=== PATIENT | male | born 1980 | race Caucasian/White ===

== ENCOUNTER 2020-05-19 08:32 | Day surgery (SDC) | payer OTHER, SELFPAY ==
[2020-05-15 12:52] VITALS: BMI 39.2
--- NOTE | 2020-05-18 08:33 | HO.ANESPROP2 ---
Documented by User: Paz Pool 05/18/20 08:35 HPI - Anesthesia Eval Consult details Narrative: 39yo M for Colonoscopy [facility] Past Medical History Medical History History of closed head injury Surgical History Surgical History History of excision of pilonidal cyst History of hand surgery Hx of colonoscopy Hx of inguinal hernia repair Social History Social History (Updated 05/19/20 @ 10:18 by Chela Tellez) Smoking Status: Current some day smoker Smoked in Last 30 Days: Yes Use of substances other than those prescribed or required for medical reasons: No Advance Directives: No Advance Directives Information Provided: No Advance Directives on File: No Recently lost weight without trying: No Meds Allergies Allergy/AdvReac Type Severity Reaction Status Date / Time phenytoin [Dilantin] Allergy Mild Rash Verified 05/19/20 08:45 Home Medications Medication Instructions Recorded Confirmed Type cholecalciferol (vitamin D3) 25 mcg PO DAILY 05/15/20 05/15/20 History [Vitamin D3] Exam Exam Date and Time: May 18, 2020 0833 Height,Weight and Vital Signs: Height 6 ft 1.5 in Weight 136.531 kg Assessment and Plan Assessment Anesthesia Assessment: Chart Reviewed Documented by User: Chela Tellez 05/19/20 10:19 [facility] Past Medical History Medical History History of closed head injury Family History Family history of problems with anesthesia: No Surgical History Surgical History History of excision of pilonidal cyst History of hand surgery Hx of colonoscopy Hx of inguinal hernia repair History of Problems with Anesthesia: No Social History Social History (Updated 05/19/20 @ 10:18 by Chela Tellez) Smoking Status: Current some day smoker Smoked in Last 30 Days: Yes Use of substances other than those prescribed or required for medical reasons: No Advance Directives: No Advance Directives Information Provided: No Advance Directives on File: No Recently lost weight without trying: No Meds Allergies Allergy/AdvReac Type Severity Reaction Status Date / Time phenytoin [Dilantin] Allergy Mild Rash Verified 05/19/20 08:45 Home Medications Medication Instructions Recorded Confirmed Type cholecalciferol (vitamin D3) 25 mcg PO DAILY 05/15/20 05/15/20 History [Vitamin D3] Exam Height,Weight and Vital Signs: Vital Signs Temp Pulse Resp BP Pulse Ox 05/19/20 08:56 97.2 F 72 18 146/88 H 96 Airway Mallampati Class: III TM Dist: >3cm Neck ROM: Full Heart: RRR Lungs: CTAB Assessment and Plan Assessment Anesthesia Assessment: Anesthesia Plan Discussed and Chart Reviewed Final Anesthetic Review NPO: Yes ASA Class: III Final Preanesthetic Review: No Changes in Pt Med Stat, Meds/Allgs Chart Reviewed, Consent Obtained/Reviewed and Anes Risks/Benef Reviewed Patient Risk: Low Procedure Risk: Low Assessment/Block/Sedation in SS: Assess/Block/Sedation-SS Anesthetic Plan Anesthetic Plan: MAC: Disposition: Standard PACU
[2020-05-19 08:56] VITALS: BP 146/88; PULSE 72; RESP 18; TEMP 36.2; O2SAT 96
--- NOTE | 2020-05-19 09:25 | PC.NURSE ---
pt vasovagal with iv attempt. diaphoretic, dizzy hr 30,s. cool cloth to head lying flat. states feels better now. hr 67 02-95 R/A. bp 134/87. resting quietly.
[2020-05-19] MEDS: Lactated Ringers 1,000 ML 100 ML IVCONT (09:39)
[2020-05-19 10:36] VITALS: BP 116/72; PULSE 77; RESP 16; TEMP 36.5; O2SAT 99
--- NOTE | 2020-05-19 10:40 | PM.OP ---
Brief Operative Note Date of Service: 05/19/20 Pre-op diagnosis: Screening, History of colon polyps, Family history of colon cancer Post-op diagnosis: other (Rectal polyp) Procedure: Colonoscopy to the cecum and TI with biopsy and removal of polyp Surgeon: Donald Patel Anesthesia: MAC Estimated blood loss (mL): 2.0 Pathology: other (A. Rectal polyp) Condition: stable Disposition: PACU
[2020-05-19 10:51] VITALS: BP 121/73; PULSE 77; RESP 18; O2SAT 97
[2020-05-19 11:03] VITALS: BP 121/63; PULSE 78; RESP 18; O2SAT 97
--- NOTE | 2020-05-19 11:14 | OP_ITS ---
SURGEON: Donald Patel MD INDICATIONS: The patient presents for evaluation of personal history of tubular adenoma of the colon, and family history of colon cancer. Full consent was obtained from him for this, including risks of bleeding and perforation. PREOPERATIVE DIAGNOSIS: Personal history of tubular adenoma of the colon, colorectal cancer screening, family history of colon cancer. POSTOPERATIVE DIAGNOSIS: Personal history of tubular adenoma of the colon, colorectal cancer screening, family history of colon cancer, rectal polyp, small internal hemorrhoids. PROCEDURE PERFORMED: Colonoscopy to the cecum and terminal ileum with biopsy and removal of polyp. ESTIMATED BLOOD LOSS: COMPLICATIONS: ANESTHESIA: Monitored anesthesia care. ASSISTANTS: SPECIMENS: DESCRIPTION OF PROCEDURE: The patient was placed in the left lateral decubitus position. The digital rectal exam revealed no abnormalities. The Olympus video pediatric colonoscope was entered into the rectum and advanced easily to the cecum. Once in the cecum, I did identify normal-appearing cecal pouch with appendiceal orifice and a normal-appearing ileocecal valve. The terminal ileum was cannulated and appeared normal. The scope was withdrawn back in the colon. The entire cecum and ileocecal valve appeared normal. The scope was slowly withdrawn assessing all mucosal surfaces carefully. Preparation was excellent. I did not visualize any sign of colitis nor angiodysplasia. In the rectum, the scope was retroflexed visualizing minimal internal hemorrhoids. The scope was straightened. In the forward viewing position, was a flat approximately 4 mm grossly adenomatous polyp, which was biopsied and removed completely with the cold biopsy forceps. The scope was then withdrawn from the patient. He tolerated the procedure well and was returned to recovery area in stable condition. IMPRESSION: 1. Rectal polyp, status post biopsy and removal. 2. Small internal hemorrhoids. PLAN: The results of biopsy will be checked. I would recommend a repeat colonoscopy in 5 years for further screening and surveillance. He will otherwise see me on a p.r.n. basis. MD BERNADETTE Gan/LINO / [id number]
[2020-05-19 11:21] VITALS: TEMP 36.6
== END 2020-05-19 11:36 | disposition home or self-care (01) ==
PROVIDERS: PCP Internal Medicine; Visit Provider Internal Medicine
PROC: 0DJD8ZZ Inspection of Lower Intestinal Tract, Via Natural or Artificial Opening Endoscopic (ICD-10-PCS; CPT 45378; principal; 2020-05-19 09:30)
DX: Z12.11 Encounter for screening for malignant neoplasm of colon (principal); Z86.010 Personal history of colon polyps; Z80.0 Family history of malignant neoplasm of digestive organs; D12.8 Benign neoplasm of rectum; K64.8 Other hemorrhoids; Z88.8 Allergy status to other drugs, medicaments and biological substances
CPT/HCPCS: 45380; 88305

== ENCOUNTER 2023-01-24 08:16 | Outpatient (REF) | payer OTHER, SELFPAY ==
[2023-01-24 08:41] LABS: MANUAL DIFF FLAG NO
[2023-01-24 09:28] LABS: Basophils Absolute Auto 0.1 X10*3/uL (0.0-0.2); Basophils Percent Auto 0.6 % (0-2); Eosinophils Absolute Auto 0.2 X10*3/uL (0.0-0.4); Eosinophils Percent Auto 1.6 % (0-4); Hematocrit 45.5 % (42.0-52.0); Hemoglobin 15.2 g/dl (14.0-18.0); Imm Gran Abs Auto 0.06 X10*3/uL (0.00-0.03); Imm Gran Pct Auto 0.5 % (0.0-0.4); Lymphocytes Absolute Auto 2.1 X10*3/uL (1.2-4.9); Lymphocytes Percent Auto 17.5 % (20-40); Mean Corpuscular HGB Conc 33.4 g/dl (31.0-36.0); Mean Corpuscular Hemoglobin 28.8 pg (27.0-33.0); Mean Corpuscular Volume 86.2 fL (80.0-98.0); Mean Platelet Volume 10.1 fL (9.4-12.4); Monocytes Percent Auto 8.4 % (2-11); Neutrophils Absolute Auto 8.7 x10*3/uL (2.0-8.3); Neutrophils Percent Auto 71.4 % (45-73); Platelet Count 291 X10*3/uL (160-400); Red Blood Count 5.28 X10*6/uL (4.60-5.80); Red Cell Distribution Width 13.2 % (11.0-16.0); White Blood Count 12.2 X10*3/uL (4.8-10.8)
[2023-01-24 10:24] LABS: Alanine Aminotransferase 21 U/L (0-40); Albumin Level 4.5 g/dL (3.5-5.0); Alkaline Phosphatase 85 U/L (39-117); Anion Gap 14 (12-20); Aspartate Amino Transferase 22 U/L (5-37); Bilirubin Total 0.7 mg/dL (0.0-1.0); Blood Urea Nitrogen 12 mg/dL (9-16); Calcium 9.7 mg/dL (8.4-10.2); Carbon Dioxide 29 mmol/L (22-29); Chloride 102 mmol/L (96-108); Cholesterol 252 mg/dL (<200); Estimated Glomerular Filt Rate > 60; Glucose Fasting 94 mg/dL (60-99); HDL Cholesterol 43 mg/dL (>40); LDL Cholesterol Calculated 190 mg/dL (<100); Potassium 4.5 mmol/L (3.3-5.1); Sodium 140 mmol/L (135-145); Total Protein 7.8 g/dL (6.5-8.0); Triglycerides 96 mg/dL (<150)
[2023-01-24 10:29] LABS: Thyroid Stimulating Hormone 0.69 uIU/mL (0.32-4.0); Vitamin D 25-OH Total 30.4 ng/mL (>30)
== END 2023-01-24 08:17 | disposition home or self-care (01) ==
LOC: HO.LAB 08:16
PROVIDERS: PCP Internal Medicine; Visit Provider Internal Medicine
DX: Z00.00 Encounter for general adult medical examination without abnormal findings (principal); E66.09 Other obesity due to excess calories; E78.00 Pure hypercholesterolemia, unspecified; E55.9 Vitamin D deficiency, unspecified
CPT/HCPCS: 36415; 80053; 80061; 82306; 84443; 85025

== ENCOUNTER → 2023-08-22 12:36 | Outpatient (BNVA) | payer OTHER, SELFPAY | PROVIDERS: PCP Internal Medicine; Visit Provider Physician Assistant | DX: M23.92 Unspecified internal derangement of left knee (principal) | CPT/HCPCS: 99204 ==

== ENCOUNTER → 2023-08-28 09:38 | Outpatient (BNVA) | payer OTHER, SELFPAY | PROVIDERS: PCP Internal Medicine; Visit Provider Physician Assistant | DX: M23.92 Unspecified internal derangement of left knee (principal) | CPT/HCPCS: 99213 ==

== ENCOUNTER → 2023-09-10 09:07 | Outpatient (BNVA) | payer OTHER, SELFPAY | PROVIDERS: PCP Internal Medicine; Visit Provider Physician Assistant | DX: M23.92 Unspecified internal derangement of left knee (principal) | CPT/HCPCS: 99213 ==

== ENCOUNTER → 2023-09-24 09:29 | Outpatient (BNVA) | payer OTHER, SELFPAY | PROVIDERS: PCP Internal Medicine; Visit Provider Physician Assistant | DX: M23.92 Unspecified internal derangement of left knee (principal) | CPT/HCPCS: 99213 ==